=== PATIENT | female | born 1985 | race African-American/Black ===

== ENCOUNTER 2023-11-12 06:33 | Inpatient (IN) | payer BC ==
[2023-11-12] MEDS ORDERED: ONDANSETRON 4 MG/2 ML VIAL ONE (06:48)
[2023-11-12] MEDS ORDERED: morphine SULFATE 4 MG/ML VIAL ONE (06:48)
[2023-11-12 06:55] LABS: BASO % 0.4 % (0-2.0); EOS % 2.8 % (0-4.5); HEMATOCRIT 38.4 % (32.4-45.2); HEMOGLOBIN 12.8 GM/dL (10.7-15.3); LYMPH % 15.5 % (8-40); MCH 32.8 pg (25.7-33.7); MCHC 33.5 g/dl (32.0-36.0); MEAN PLT VOLUME 7.2 fl (7.5-11.1); MONO % 9.2 % (3.8-10.2); NEUT % 72.1 % (42.8-82.8); PLATELET COUNT 211 10^3/uL (134-434); RBC 3.91 M/mm3 (3.60-5.2); WHITE BLOOD COUNT 5.1 K/mm3 (4.0-10.0)
[2023-11-12] MEDS: ONDANSETRON 4 MG/2 ML VIAL IVPUSH ONE (06:57)
[2023-11-12] MEDS: morphine SULFATE 4 MG/ML VIAL IVPUSH ONE ×2 (06:57→11:02)
[2023-11-12] MEDS: SODIUM CHLORIDE 0.9% 500 ML INFUS.BAG IV ONE (06:57)
[2023-11-12 07:06] LABS: CHLORIDE 108 mmol/L (98-107); POTASSIUM 4.6 mmol/L (3.5-5.1); SODIUM 139 mmol/L (136-145)
[2023-11-12 07:08] LABS: ALBUMIN 3.9 g/dl (3.4-5.0); CALCIUM 9.2 mg/dL (8.5-10.1)
[2023-11-12 07:09] LABS: ANION GAP 4 mmol/L (4-13); BLOOD UREA NITROGEN 11.3 mg/dL (7-18); CO2 27 mmol/L (21-32); GLUCOSE,RANDOM 118 mg/dL (74-106)
[2023-11-12 07:11] LABS: SGPT/ALT 620 U/L (13-61)
[2023-11-12 07:12] LABS: CREATININE 0.9 mg/dL (0.55-1.3); SGOT/AST 807 U/L (15-37)
[2023-11-12 07:13] LABS: BILIRUBIN,TOTAL 1.1 mg/dL (0.2-1); TOT PROT 7.6 g/dl (6.4-8.2)
[2023-11-12 07:14] LABS: ALK PHOS 195 U/L (45-117)
[2023-11-12] MEDS ORDERED: ACETAMINOPHEN INJECTION 100 ML IVPB ONE (07:43)
[2023-11-12] MEDS ORDERED: FAMOTIDINE 20 MG/50 ML IVPB 20 MG/50 ML MG IVPB ONE (07:44)
[2023-11-12] MEDS: FAMOTIDINE 20 MG/50 ML IVPB 20 MG/50 ML MG IVPB ONE (07:47)
[2023-11-12] MEDS: ACETAMINOPHEN 1000 MG/100 ML BAG IVPB ONE (07:47)
[2023-11-12] MEDS: LACTATED RINGERS SOLUTION 1000 ML INFUS.BAG IV ONE (07:47)
[2023-11-12 08:17] LABS: INR 1.07 (0.83-1.09); PROTHROMBIN TIME (PATIENT) 12.1 SEC (9.7-13.0)
[2023-11-12 08:20] LABS: EPI CELLS >36 /uL (0-25.1); HYALINE CASTS 1 /uL (0-3.1); URINE APPEARANCE CLOUDY; URINE BACTERIA 2083 /uL (0-1359); URINE BILIRUBIN NEGATIVE (NEGATIVE); URINE COLOR YELLOW; URINE GLUCOSE (UA) NEGATIVE (NEGATIVE); URINE KETONE NEGATIVE (NEGATIVE); URINE LEUK ESTERASE 1+ (NEGATIVE); URINE NITRITE NEGATIVE (NEGATIVE); URINE PROTEIN TRACE (NEGATIVE); URINE RBC 11 /uL (0-23.9); URINE WBC 50 /uL (0-25.8)
[2023-11-12 08:38] LABS: BILIRUBIN,DIRECT 0.6 mg/dL (0.0-0.2)
[2023-11-12 08:39] LABS: LDH 455 U/L (84-246)
[2023-11-12] MEDS ORDERED: KETOROLAC TROMETHAMINE 15 MG/ML VIAL IVPUSH PRN (08:41)
[2023-11-12] MEDS: ONDANSETRON 4 MG/2 ML VIAL IVPUSH PRN (10:40)
[2023-11-12] MEDS ORDERED: morphine SULFATE 4 MG/ML VIAL IVPUSH PRN (11:00)
[2023-11-12] MEDS: ENOXAPARIN NA (PORCINE) 40 MG/0.4 ML DISP.SYRIN SQ SCH (11:07)
[2023-11-12] MEDS: LACTATED RINGERS SOLUTION 1,000 ML IV SCH (11:10)
[2023-11-12] MEDS: PIPERACILLIN/TAZOB 3.375 GM 3.375 GM in DEXTROSE 5%-WATER - 50 ML IVPB SCH (11:16)
[2023-11-12] MEDS: KETOROLAC TROMETHAMINE 15 MG/ML VIAL IVPUSH PRN (12:07)
[2023-11-12 14:24] LABS: COCAINE, UR NEGATIVE (NEGATIVE)
[2023-11-12 14:25] LABS: METHADONE, UR NEGATIVE (NEGATIVE); PHENCYCLIDINE,URINE NEGATIVE (NEGATIVE); URINE AMPHETAMINES NEGATIVE (NEGATIVE); URINE BARBITURATES NEGATIVE (NEGATIVE); URINE BENZODIAZEPINES NEGATIVE (NEGATIVE)
[2023-11-12] MEDS: INDOMETHACIN 50 MG RECTAL SUPPOSITORY PR ONE (14:30)
[2023-11-12 14:31] LABS: OPIATES, URI POSITIVE (NEGATIVE)
[2023-11-12] MEDS: morphine SULFATE 4 MG/ML VIAL IVPUSH PRN (16:40)
[2023-11-13 08:09] LABS: BASO % 0.3 % (0-2.0); EOS % 0.6 % (0-4.5); HEMOGLOBIN 11.3 GM/dL (10.7-15.3); MCHC 33.4 g/dl (32.0-36.0); MEAN CELL VOLUME 98.9 fl (80-96); MEAN PLT VOLUME 8.2 fl (7.5-11.1); MONO % 5.4 % (3.8-10.2); NEUT % 83.7 % (42.8-82.8); PLATELET COUNT 180 10^3/uL (134-434); RBC 3.44 M/mm3 (3.60-5.2); RDW 13.1 % (11.6-15.6); WHITE BLOOD COUNT 9.7 K/mm3 (4.0-10.0)
[2023-11-13 08:20] LABS: POTASSIUM 3.4 mmol/L (3.5-5.1)
[2023-11-13 08:30] LABS: CALCIUM 8.4 mg/dL (8.5-10.1)
[2023-11-13 08:31] LABS: ALBUMIN 3.3 g/dl (3.4-5.0); BLOOD UREA NITROGEN 7.1 mg/dL (7-18); MAGNESIUM 1.7 mg/dL (1.8-2.4)
[2023-11-13 08:34] LABS: CREATININE 0.8 mg/dL (0.55-1.3); PHOSPHOROUS 2.6 mg/dL (2.5-4.9); TOT PROT 6.4 g/dl (6.4-8.2)
[2023-11-13] MEDS: HYDROmorphone HCl 2 MG/ML VIAL IVPB PRN (14:31)
[2023-11-13] MEDS: MAGNESIUM SULF 50% (8.12 MEQ/2 ML-1 GM VIAL) IVPB ONE (15:54)
[2023-11-13] MEDS: PIPERACILLIN/TAZOB 3.375 GM 3.375 GM in DEXTROSE 5%-WATER - 50 ML IVPB SCH (17:30)
[2023-11-13] MEDS: LACTATED RINGERS SOLUTION 1,000 ML IV SCH (18:26)
[2023-11-13] MEDS: MAGNESIUM 1GM/D5W - 1 GM/100 ML IVPB IVPB ONE (18:26)
[2023-11-13] MEDS: POTASSIUM CHLORIDE TABS 20 MEQ TABLET.ER (FP) PO SCH (18:26)
[2023-11-14 09:00] LABS: BASO % 0.2 % (0-2.0); EOS % 0.9 % (0-4.5); HEMATOCRIT 32.4 % (32.4-45.2); HEMOGLOBIN 10.8 GM/dL (10.7-15.3); LYMPH % 8.6 % (8-40); MCHC 33.5 g/dl (32.0-36.0); MEAN CELL VOLUME 98.6 fl (80-96); MEAN PLT VOLUME 7.8 fl (7.5-11.1); MONO % 7.3 % (3.8-10.2); PLATELET COUNT 163 10^3/uL (134-434); RBC 3.28 M/mm3 (3.60-5.2); RDW 13.1 % (11.6-15.6); WHITE BLOOD COUNT 8.9 K/mm3 (4.0-10.0)
[2023-11-14 09:10] LABS: INR 1.27 (0.83-1.09); PROTHROMBIN TIME (PATIENT) 14.2 SEC (9.7-13.0)
[2023-11-14 09:46] LABS: POTASSIUM 3.7 mmol/L (3.5-5.1)
[2023-11-14 09:54] LABS: BLOOD UREA NITROGEN 5.4 mg/dL (7-18); CALCIUM 8.4 mg/dL (8.5-10.1)
[2023-11-14 09:55] LABS: ALBUMIN 3.1 g/dl (3.4-5.0)
[2023-11-14 09:58] LABS: CREATININE 0.6 mg/dL (0.55-1.3)
[2023-11-14 09:59] LABS: TOT PROT 6.1 g/dl (6.4-8.2)
[2023-11-14 10:02] LABS: BILIRUBIN,TOTAL 3.1 mg/dL (0.2-1)
[2023-11-14] MEDS: LACTATED RINGERS SOLUTION 1,000 ML IV SCH (18:25)
[2023-11-15] MEDS: LACTATED RINGERS SOLUTION 1,000 ML IV SCH (09:19)
[2023-11-15 09:52] LABS: BASO % 0.1 % (0-2.0); EOS % 0.3 % (0-4.5); HEMATOCRIT 29.7 % (32.4-45.2); HEMOGLOBIN 10.2 GM/dL (10.7-15.3); LYMPH % 7.4 % (8-40); MCH 33.5 pg (25.7-33.7); MCHC 34.3 g/dl (32.0-36.0); MEAN CELL VOLUME 97.7 fl (80-96); MEAN PLT VOLUME 8.5 fl (7.5-11.1); MONO % 7.1 % (3.8-10.2); NEUT % 85.1 % (42.8-82.8); PLATELET COUNT 171 10^3/uL (134-434); RBC 3.05 M/mm3 (3.60-5.2); RDW 13.4 % (11.6-15.6); WHITE BLOOD COUNT 9.6 K/mm3 (4.0-10.0)
[2023-11-15 10:01] LABS: INR 1.32 (0.83-1.09); PROTHROMBIN TIME (PATIENT) 14.8 SEC (9.7-13.0)
[2023-11-15 10:05] LABS: POTASSIUM 3.9 mmol/L (3.5-5.1)
[2023-11-15 10:07] LABS: CALCIUM 8.6 mg/dL (8.5-10.1)
[2023-11-15 10:08] LABS: BLOOD UREA NITROGEN 6.3 mg/dL (7-18); MAGNESIUM 2.1 mg/dL (1.8-2.4)
[2023-11-15 10:11] LABS: CREATININE 0.5 mg/dL (0.55-1.3); PHOSPHOROUS 2.3 mg/dL (2.5-4.9)
[2023-11-15 10:12] LABS: TOT PROT 6.2 g/dl (6.4-8.2)
[2023-11-15 10:16] LABS: BILIRUBIN,TOTAL 5.3 mg/dL (0.2-1)
[2023-11-15] MEDS ORDERED: FENTANYL CITRATE/PF 50 MCG/ML VIAL ONE (13:00)
[2023-11-15] MEDS: INDOMETHACIN 50 MG RECTAL SUPPOSITORY PR ONE (13:36)
[2023-11-15] MEDS: IOHEXOL 300 MG/ML INFUS..BTL IV ONE (13:50)
[2023-11-15] MEDS ORDERED: LACTATED RINGERS SOLUTION 1,000 ML/1,000 ML INFUS.BAG IV SCH ×2 (14:15→22:15)
[2023-11-15] MEDS ORDERED: ONDANSETRON 4 MG/2 ML VIAL ONE (14:22)
[2023-11-15] MEDS ORDERED: ONDANSETRON 4 MG/2 ML VIAL IVPUSH PRN (14:29)
[2023-11-15] MEDS ORDERED: LACTATED RINGERS SOLUTION 1,000 ML IV SCH (14:30)
[2023-11-15] MEDS: LACTATED RINGERS SOLUTION 1,000 ML/1,000 ML INFUS.BAG IV SCH (14:56)
[2023-11-15] MEDS: NAPH,MB-DB/K PH,MBDB POWDER PACKET PO SCH (16:15)
[2023-11-15] MEDS: PIPERACILLIN/TAZOB 4.5 GM 4.5 GM in DEXTROSE 5%-WATER 100 ML IVPB SCH (18:01)
[2023-11-15 20:48] VITALS: RESP 18
[2023-11-16] MEDS: LACTATED RINGERS SOLUTION 1,000 ML/1,000 ML INFUS.BAG IV SCH (00:36)
[2023-11-16 05:23] VITALS: BP 137/51; PULSE 41; TEMP 99.1
[2023-11-16] MEDS ORDERED: LACTATED RINGERS SOLUTION 1,000 ML/1,000 ML INFUS.BAG IV SCH ×2 (06:15→09:00)
[2023-11-16 10:07] LABS: BASO % 0.1 % (0-2.0); EOS % 0.1 % (0-4.5); HEMATOCRIT 29.6 % (32.4-45.2); MCH 33.4 pg (25.7-33.7); MCHC 33.8 g/dl (32.0-36.0); MEAN PLT VOLUME 8.8 fl (7.5-11.1); MONO % 7.2 % (3.8-10.2); NEUT % 81.6 % (42.8-82.8); PLATELET COUNT 219 10^3/uL (134-434); RBC 2.99 M/mm3 (3.60-5.2); RDW 13.1 % (11.6-15.6); WHITE BLOOD COUNT 11.2 K/mm3 (4.0-10.0)
[2023-11-16 10:08] LABS: INR 1.27 (0.83-1.09); POTASSIUM 4.8 mmol/L (3.5-5.1); PROTHROMBIN TIME (PATIENT) 14.2 SEC (9.7-13.0)
[2023-11-16 10:10] LABS: CALCIUM 9.2 mg/dL (8.5-10.1)
[2023-11-16 10:11] LABS: ALBUMIN 2.9 g/dl (3.4-5.0); BLOOD UREA NITROGEN 6.3 mg/dL (7-18)
[2023-11-16 10:13] LABS: BILIRUBIN,DIRECT 0.9 mg/dL (0.0-0.2); CREATININE 0.7 mg/dL (0.55-1.3)
[2023-11-16 10:14] LABS: PHOSPHOROUS 2.2 mg/dL (2.5-4.9)
[2023-11-16 10:15] LABS: TOT PROT 6.2 g/dl (6.4-8.2)
[2023-11-16 10:21] LABS: BILIRUBIN,TOTAL 1.5 mg/dL (0.2-1)
[2023-11-16 16:10] VITALS: BMI 29.1
== END 2023-11-16 11:10 | disposition left against medical advice (07) | DRG 264 ==
LOC: JER 06:33 → JERBED 07:45 → J6S 09:57
PROVIDERS: ADMIT Internal Medicine; ATTEND Internal Medicine
PROC: BF11YZZ Fluoroscopy of Biliary and Pancreatic Ducts using Other Contrast (ICD-10-PCS; 2023-11-15)
PROC: XFJB8A7 Inspection of Hepatobiliary Duct using Single-use Duodenoscope, New Technology Group 7 (ICD-10-PCS; 2023-11-15)
PROC: 0FC98ZZ Extirpation of Matter from Common Bile Duct, Via Natural or Artificial Opening Endoscopic (ICD-10-PCS; principal; 2023-11-15 14:00)
DX: K85.10 Biliary acute pancreatitis without necrosis or infection (principal); K80.50 Calculus of bile duct without cholangitis or cholecystitis without obstruction; R19.5 Other fecal abnormalities; R79.89 Other specified abnormal findings of blood chemistry; E80.6 Other disorders of bilirubin metabolism
CPT/HCPCS: 36415; 74177-TC; 74181-TC; 74330-TC; 76705-TC; 80053; 80307; 81003; 82150; 82248; 82272; 83605; 83615; 83690; 83735; 84100; 84478; 84703; 85025; 85610; 85730; 86140; 86850; 86900; 86901; 87086; 93005; 93010; 94760; 99285-25; J0131; Q9967